=== PATIENT | female | born 1985 | race African-American/Black ===

== ENCOUNTER 2021-02-02 11:07 | Outpatient (REF) | payer BC, SELFPAY ==
[2021-02-02 14:15] LABS: MANUAL DIFF FLAG NO
[2021-02-02 14:17] LABS: Basophils Percent Auto 0.5 % (0-2); Eosinophils Absolute Auto 0.2 X10*3/uL (0.0-0.4); Eosinophils Percent Auto 2.1 % (0-4); Hematocrit 39.6 % (37.0-47.0); Hemoglobin 13.2 g/dl (12.0-16.0); Imm Gran Abs Auto 0.04 X10*3/uL (0.00-0.03); Imm Gran Pct Auto 0.5 % (0.0-0.4); Lymphocytes Absolute Auto 1.9 X10*3/uL (1.2-4.9); Lymphocytes Percent Auto 23.3 % (20-40); Mean Corpuscular HGB Conc 33.3 g/dl (31.0-35.0); Mean Corpuscular Hemoglobin 26.6 pg (27.0-33.0); Mean Corpuscular Volume 79.7 fL (80.0-98.0); Monocytes Absolute Auto 0.6 X10*3/uL (0.1-1.2); Neutrophils Absolute Auto 5.2 x10*3/uL (2.0-8.3); Neutrophils Percent Auto 65.6 % (45-73); Platelet Count 352 X10*3/uL (160-400); Red Blood Count 4.97 X10*6/uL (4.20-5.50); Red Cell Distribution Width 14.6 % (11.0-16.0)
[2021-02-02 14:29] LABS: Alanine Aminotransferase 16 U/L (0-31); Albumin Level 3.6 g/dL (3.5-5.0); Alkaline Phosphatase 51 U/L (39-117); Anion Gap 11 (12-20); Aspartate Amino Transferase 15 U/L (5-31); Bilirubin Total 0.3 mg/dL (0.0-1.0); Blood Urea Nitrogen 6 mg/dL (9-16); Calcium 9.3 mg/dL (8.4-10.2); Carbon Dioxide 25 mmol/L (22-29); Chloride 105 mmol/L (96-108); Estimated Glomerular Filt Rate > 60; Glucose Random 78 mg/dL (60-115); Potassium 4.4 mmol/L (3.3-5.1); Sodium 137 mmol/L (135-145); Total Protein 7.1 g/dL (6.5-8.0)
[2021-02-02 14:57] LABS: TSH reflex Free T4 0.91 uIU/mL (0.32-4.0)
== END 2021-02-02 11:08 | disposition home or self-care (01) ==
LOC: HO.HMGCLDS 11:07
PROVIDERS: PCP Internal Medicine; Visit Provider Internal Medicine
DX: N92.6 Irregular menstruation, unspecified (principal); I10 Essential (primary) hypertension
CPT/HCPCS: 36415; 80053; 84443; 84702; 85025

== ENCOUNTER 2022-09-14 12:25 | Outpatient (AMB) | payer BC, SELFPAY ==
--- NOTE | 2022-09-14 12:29 | AM.OFFWIN_ITS ---
Intake Vital Signs 09/14/22 12:30 Height 5 ft 6 in BP 130/80 Blood Pressure Location Rt brachial Position Sitting Pulse 86 Pulse Source Pulse Oximeter Temp 98.5 F Temp Source Temporal Artery Scan Pulse Oximetry (%) 96 Intake Visit Reasons: EP rash, spreading to face Intake Note: pt is here for c/o rash on chest and face Patient Tobacco Use Status: Never used Tobacco Allergies No Known Allergies [No Known Allergies*] Allergy (Verified 09/14/22 12:36) Medication List - Last Reconciled 09/14/22 by Joao Nguyen PA-C No Known Home Meds HPI EP rash, spreading to face HPI Details Patient is a 37-year-old female here today complaining of a rash that presented on her chest that is spread upper neck onto her face. She was seen last week for this rash after gardening and was thought to be contact dermatitis. Unfortunately RAST as spread and prednisone that she has been taking has not been effective. She continues with itchy rash that has spread over her upper torso, back and lower extremities. [facility] Surgical History No pertinent past surgical history Family History Father No problems noted. Mother HTN (hypertension) Diabetes mellitus Maternal Grandmother Unknown family medical history Maternal Grandfather Unknown family medical history Paternal Grandfather Unknown family medical history Paternal Grandmother Unknown family medical history Brother No problems noted. Brother No problems noted. Brother No problems noted. Sister No problems noted. Sister No problems noted. Sister No problems noted. Sister No problems noted. Sister No problems noted. Sister No problems noted. Son No problems noted. Son No problems noted. 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 Advised that this is a self-limiting syndrome though will supply patient with medications to help with her symptoms. (2) Rash: Code(s): R21 - Rash and other nonspecific skin eruption Medications: New triamcinolone acetonide 0.1% 1 appl topical BID 10 days 80 grams 0RF L42 - Pityriasis rosea hydroxyzine HCl 10 mg PO TID 10 days 30 tabs 0RF F41.9 - Anxiety disorder, unspecified, L42 - Pityriasis rosea Coding Level of Care Code Est Pt Level 3 (01497) Diagnoses Pityriasis rosea L42 Rash R21
[2022-09-14 12:30] VITALS: BP 130/80; PULSE 86; TEMP 36.9; O2SAT 96
== END 2022-09-14 13:02 | disposition home or self-care (01) ==
PROVIDERS: PCP Internal Medicine; Visit Provider Physician Assistant
DX: L42 Pityriasis rosea (principal); R21 Rash and other nonspecific skin eruption
CPT/HCPCS: 99213

== ENCOUNTER 2023-03-19 10:20 | Outpatient (AMB) | payer BC, SELFPAY ==
[2023-03-19 10:25] VITALS: BP 112/90; PULSE 97; O2SAT 99; BMI 40.1
--- NOTE | 2023-03-19 10:25 | MHC.PC.OV ---
Vital Signs 03/19/23 10:25 Height 5 ft 6 in Weight 248 lb 6 oz BMI 40.1 BP 112/90 H Blood Pressure Location Rt brachial Position Sitting Pulse 97 Pulse Source Pulse Oximeter Pulse Oximetry (%) 99 Oxygen Delivery Method Room Air Intake Visit Reasons: Annual PE Allergies No Known Allergies [No Known Allergies*] Allergy (Verified 03/19/23 10:27) Medication List - Last Reconciled 03/19/23 by Brenton Kaur MD No Known Home Meds Tobacco use date assessed: 03/19/23 Dental Screening Dental Screen Date: 03/19/23 Did you have a dental visit in the last 12 months?: Yes Did you have a dental problem in the last 6 months where you did not have access to dental care?: No Was dental information given to patient?: Patient has dentist HPI Annual PE HPI Details Patient is 37-year-old female came in today for physical examination She is due for OBGYN visit, referral placed Due for labs need to be done fasting Patient continued to have mid back pain, 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 We talked about changing the job as it seems like her job activities is making the pain worse I have sent muscle relaxer that she can take at night, and naproxen with food up to 2 times a day as needed BMI is elevated need to lose weight We will book telemedicine visit to go over labs in 2 weeks Patient is to return in 1 year for physical exam [facility] Surgical History No pertinent past surgical history Family History Father No problems noted. Mother HTN (hypertension) Diabetes mellitus Maternal Grandmother Unknown family medical history Maternal Grandfather Unknown family medical history Paternal Grandfather Unknown family medical history Paternal Grandmother Unknown family medical history Brother No problems noted. Brother No problems noted. Brother No problems noted. Sister No problems noted. Sister No problems noted. Sister No problems noted. Sister No problems noted. Sister No problems noted. Sister No problems noted. Son No problems noted. Son No problems noted. Social History Housing: House Alcohol intake: current Alcohol intake frequency: holidays/special occasions only Patient Tobacco Use Status: Never used Tobacco e-Cigarette/Vaping Use: Never Used Current occupational status: employed Cognitive needs: No Hearing needs: No Vision needs: No Questionnaire PHQ-9 Over the last 2 weeks, how often have you been bothered by any of the following problems? 1. Little interest or pleasure in doing things: not at all 2. Feeling down, depressed, or hopeless: several days 3. Trouble falling or staying asleep, or sleeping too much: not at all 4. Feeling tired or having little energy: not at all 5. Poor appetite or overeating: not at all 6. Feeling bad about yourself - or that you are a failure or have let yourself or your family down: not at all 7. Trouble concentrating on things, such as reading the newspaper or watching television: not at all 8. Moving or speaking so slowly that other people could have noticed. Or the opposite - being so fidgety or restless that you have been moving around a lot more than usual: not at all 9. Thoughts that you would be better off or of hurting yourself in some way: not at all Total score: 1 Depression Screening Interpretation: Negative Depression Screening Done: Yes 28063 - PHQ-9 Billing: Yes Source: Developed by Drs. Mick Luu, Colette Alas, Gera Pierce and colleagues, with an educational nazia from [employer]. Thrive Questionnaire Date Thrive assessed: 03/19/23 I am a: Patient What is your living situation today?: I have a steady place to live Within the past 12 months, did the food you bought not last and you didn't have the money to get more?: Sometimes True Within the past 12 months, did you worry whether your food would run out before you got money to buy more?: Sometimes True Do you have trouble paying for medicines?: No Do you have trouble getting transportation to medical appointments?: No Do you have trouble paying your heating and electricity bill?: No Do you have trouble taking care of your child, family member or friend?: No Do you have trouble with day-to-day activities such as bathing, preparing meals, shopping, managing finances, etc.?: No Are you currently unemployed and looking for a job?: No Are you interested in more education?: No Please select the resources that you would like help with: None Currently or been in a relationship where the following occur: no concerns reported AUDIT C Alcohol Use Questionnaire (AUDIT-C) 1. How often do you have a drink containing alcohol?: Never 3. How often do you have six or more drinks on one occasion?: Never Total Score: 0 Score Reviewed/Action Taken: Yes BLANCA-7 AMB Questionnaire BLANCA-7 Date BLANCA - 7 assessed: 03/19/23 Feeling nervous, anxious, or on edge: 1 = Several days Not being able to stop or control worryin = Several days Worrying too much about different things: 1 = Several days Trouble relaxin = Several days Being so restless that it is hard to sit still: 1 = Several days Becoming easily annoyed or irritable: 1 = Several days Feeling afraid as if something awful might happen: 1 = Several days Total BLANCA-7 score (0-4 normal; 5-9 mild; 10-14 moderate; 15-21 severe): 7 Source: Developed by Drs. Mick Luu, Colette Alas, Gera Pierce and colleagues, with an educational nazia from [employer]. BLANCA-7 Assessment Billing BLANCA-7 Assessment Tool: BLANCA-7 Assessment 73820 Review of Systems Const Denies chills, Denies fever(s) and Denies headache(s) Eyes Denies blurry vision ENT Denies headache(s), Denies nasal discharge, Denies nasal obstruction, Denies odynophagia and Denies sinus pain Card Denies chest pain at rest and Denies chest pain with activity Resp Denies cough and Denies hemoptysis GI Denies diarrhea, Denies odynophagia, Denies vomiting and Denies hematemesis Reports as per HPI Musc Denies abnormal gait Skin/Breast Reports as per HPI Neuro Denies Neuro-related abnormal movements, Denies Abnormal speech present, Denies abnormal gait, Denies headache(s) and Denies Sensory deficit (Neuro) Psych Denies mood swings and Denies paranoia Endo Reports as per HPI Richard/Lymph Reports as per HPI Aller/Immun Reports as per HPI Physical exam (Primary Care) Vital Signs: Last Vital Signs Pulse 97 03/19/23 10:25 BP 112/90 H 03/19/23 10:25 Pulse Ox 99 03/19/23 10:25 Oxygen Delivery Method Room Air 03/19/23 10:25 BMI result Body Mass Index 40.1 Tobacco/Smoking Status: Tobacco use Status Tobacco use date assessed 03/19/23 03/19/23 10:29 Patient Tobacco Use Status Never used Tobacco 03/19/23 10:29 e-Cigarette/Vaping Use Never Used 03/19/23 10:29 PHQ-9: PHQ-9 Score PHQ-9: Total score 1 03/19/23 10:49 Depression Screening Interpretation: Negative Thrive Assessment: Date of Thrive Assessment Date Thrive assessed 03/19/23 03/19/23 10:49 Currently or been in a relationship where the following occur: no concerns reported Const General: cooperative, comfortable and no acute distress Orientation/consciousness: patient oriented x3 HENMT Head: Yes normocephalic and Yes atraumatic Eyes General: appearance normal, both eyes and all related structures Pupils: Equal, round and reactive pupils present EOM: EOMs intact bilaterally Neck Neck: Yes supple and No lymphadenopathy Thyroid: Thyroid normal Lymphatic: no lymphadenopathy noted Chest Breast/axilla palpation: normal palpation of the breasts Resp Effort & Inspection: normal respiratory effort and able to speak in complete sentences Auscultation: clear to auscultation bilaterally Cardio Heart sounds: S1 normal heart sound present and S2 normal heart sound present GI Palpation (GI): Soft to palpation and nontender Auscultation: normal bowel sounds General: Yes no CVA tenderness Back/Spine/Pelvis Back: no CVA tenderness Back/spine/pelvis image: 1. Site of pain Skin General skin exam: elasticity normal and turgor normal Neuro General: patient oriented x3 and gait normal Cranial nerves: Yes Equal, round and reactive pupils present Speech: No Abnormal speech present Sensory Exam: No Sensory deficit (Neuro) Coordination: tandem gait normal and Romberg test negative Extrem General: Yes normal exam except as noted and No edema Assessment and Plan Assessment & Plan (1) Encounter for general adult medical examination with abnormal findings: Code(s): Z00.01 - Encounter for general adult medical examination with abnormal findings (2) Morbid obesity due to excess calories: Code(s): E66.01 - Morbid (severe) obesity due to excess calories (3) Upper back pain, chronic: Code(s): M54.9 - Dorsalgia, unspecified; G89.29 - Other chronic pain Plan Patient is 37-year-old female came in today for physical examination She is due for OBGYN visit, referral placed Due for labs need to be done fasting Patient continued to have mid back pain, 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 We talked about changing the job as it seems like her job activities is making the pain worse I have sent muscle relaxer that she can take at night, and naproxen with food up to 2 times a day as needed BMI is elevated need to lose weight We will book telemedicine visit to go over labs in 2 weeks Patient is to return in 1 year for physical exam Orders: Orders Comprehensive [place]. Panel Fast Today E66.01 - Morbid (severe) obesity due to excess calories, Z00.01 - Encounter for general adult medical examination with abnormal findings Complete Blood Count Auto Diff Today E66.01 - Morbid (severe) obesity due to excess calories, Z00.01 - Encounter for general adult medical examination with abnormal findings Lipid Panel Today E66.01 - Morbid (severe) obesity due to excess calories, Z00.01 - Encounter for general adult medical examination with abnormal findings TSH reflex Free T4 Today E66.01 - Morbid (severe) obesity due to excess calories, Z00.01 - Encounter for general adult medical examination with abnormal findings Referrals [employer] [facility] TECHNICIAN Referral Z01.419 - Encounter for gynecological examination (general) (routine) without abnormal findings Medications: New cyclobenzaprine 5 mg PO BEDTIME 30 days 30 tabs 0RF M54.9 - Dorsalgia, unspecified naproxen Take it with food 500 mg PO BID 30 days PRN 60 tabs 0RF pain Coding Level of Care Code Est Pt Prev Care 18-39y(18491) Diagnoses Encounter for general adult medical examination with abnormal findings Z00.01 Morbid obesity due to excess calories E66.01 Upper back pain, chronic M54.9; G89.29 Additional Codes BLANCA-7 Assessment Billing - BLANCA-7 Assessment Tool: BLANCA-7 Assessment 33439 ([id number])
== END 2023-03-19 10:50 | disposition home or self-care (01) ==
PROVIDERS: PCP Internal Medicine; Visit Provider Internal Medicine
DX: Z00.00 Encounter for general adult medical examination without abnormal findings (principal); Z68.41 Body mass index [BMI] 40.0-44.9, adult; E66.01 Morbid (severe) obesity due to excess calories; M54.9 Dorsalgia, unspecified; G89.29 Other chronic pain
CPT/HCPCS: 99395

== ENCOUNTER 2023-03-22 10:08 | Outpatient (REF) | payer BC, SELFPAY ==
[2023-03-22 11:29] LABS: MANUAL DIFF FLAG NO
[2023-03-22 11:46] LABS: Basophils Percent Auto 0.4 % (0-2); Eosinophils Absolute Auto 0.2 X10*3/uL (0.0-0.4); Hematocrit 39.6 % (37.0-47.0); Imm Gran Abs Auto 0.01 X10*3/uL (0.00-0.03); Imm Gran Pct Auto 0.2 % (0.0-0.4); Lymphocytes Absolute Auto 2.1 X10*3/uL (1.2-4.9); Lymphocytes Percent Auto 47.1 % (20-40); Mean Corpuscular HGB Conc 32.8 g/dl (31.0-35.0); Mean Corpuscular Hemoglobin 25.9 pg (27.0-33.0); Mean Platelet Volume 11.9 fL (9.4-12.3); Monocytes Absolute Auto 0.3 X10*3/uL (0.1-1.2); Neutrophils Absolute Auto 1.8 x10*3/uL (2.0-8.3); Neutrophils Percent Auto 41.3 % (45-73); Platelet Count 273 X10*3/uL (160-400); Red Blood Count 5.01 X10*6/uL (4.20-5.50); Red Cell Distribution Width 14.1 % (11.0-16.0); White Blood Count 4.5 X10*3/uL (4.8-10.8)
[2023-03-22 11:54] LABS: Alanine Aminotransferase 10 U/L (0-31); Albumin Level 3.6 g/dL (3.5-5.0); Alkaline Phosphatase 66 U/L (39-117); Anion Gap 9 (12-20); Aspartate Amino Transferase 15 U/L (5-31); Bilirubin Total 0.5 mg/dL (0.0-1.0); Blood Urea Nitrogen 7 mg/dL (9-16); Calcium 8.8 mg/dL (8.4-10.2); Carbon Dioxide 27 mmol/L (22-29); Chloride 105 mmol/L (96-108); Cholesterol 142 mg/dL (<200); Estimated Glomerular Filt Rate > 60; Glucose Fasting 82 mg/dL (60-99); HDL Cholesterol 41 mg/dL (>40); LDL Cholesterol Calculated 93 mg/dL (<100); Potassium 3.9 mmol/L (3.3-5.1); Sodium 137 mmol/L (135-145); Total Protein 7.2 g/dL (6.5-8.0); Triglycerides 43 mg/dL (<150)
[2023-03-22 12:11] LABS: TSH reflex Free T4 2.36 uIU/mL (0.32-4.0)
== END 2023-03-22 10:09 | disposition home or self-care (01) ==
LOC: HO.HMGCLDS 10:08
PROVIDERS: PCP Internal Medicine; Visit Provider Internal Medicine
DX: Z00.01 Encounter for general adult medical examination with abnormal findings (principal); E66.01 Morbid (severe) obesity due to excess calories
CPT/HCPCS: 36415; 80053; 80061; 84443; 85025

== ENCOUNTER 2023-04-15 10:48 | Outpatient (AMB) | payer BC, SELFPAY ==
--- NOTE | 2023-04-15 10:53 | MHC.PC.OV ---
Vital Signs 04/15/23 10:54 Height 5 ft 6 in Weight 248 lb BMI 40.0 BP 142/80 H Blood Pressure Location Rt brachial Position Sitting Pulse 89 Pulse Source Pulse Oximeter Pulse Oximetry (%) 100 Oxygen Delivery Method Room Air Intake Visit Reasons: Discuss Results~ unable to do TV Allergies No Known Allergies [No Known Allergies*] Allergy (Verified 04/15/23 10:54) Medication List - Last Reconciled 04/15/23 by Brenton Kaur MD No Known Home Meds Tobacco use date assessed: 04/15/23 Dental Screening Dental Screen Date: 04/15/23 Did you have a dental visit in the last 12 months?: Yes Did you have a dental problem in the last 6 months where you did not have access to dental care?: No Was dental information given to patient?: Patient has dentist HPI Discuss Results~ unable to do TV HPI Details Patient is 37-year-old female came today to go over labs her white count level came back slightly low, it was fine last visit We will repeat it again in 3 months Patient is having lot of stress at home due to family med is She is suffering from anxiety and mood disorder Patient does not want to take medication daily but she agreed to take it as needed, I have sent buspirone 5 mg to be taken once a day as needed She is also requesting a script for multivitamin, I see that no multivitamin is covered under her insurance I have sent vitamin instead as that is covered. However patient is not . Her BMI is elevated, she is trying to lose weight but feels as if she has not motivated enough Blood pressure is also elevated today, but it was fine last time [facility] Surgical History No pertinent past surgical history Family History Father No problems noted. Mother HTN (hypertension) Diabetes mellitus Maternal Grandmother Unknown family medical history Maternal Grandfather Unknown family medical history Paternal Grandfather Unknown family medical history Paternal Grandmother Unknown family medical history Brother No problems noted. Brother No problems noted. Brother No problems noted. Sister No problems noted. Sister No problems noted. Sister No problems noted. Sister No problems noted. Sister No problems noted. Sister No problems noted. Son No problems noted. Son No problems noted. Social History Housing: House Alcohol intake: current Alcohol intake frequency: holidays/special occasions only Patient Tobacco Use Status: Never used Tobacco e-Cigarette/Vaping Use: Never Used Current occupational status: employed Cognitive needs: No Hearing needs: No Vision needs: No Questionnaire Thrive Questionnaire Date Thrive assessed: 03/19/23 AUDIT C Alcohol Use Questionnaire (AUDIT-C) 1. How often do you have a drink containing alcohol?: Never 3. How often do you have six or more drinks on one occasion?: Never Total Score: 0 BLANCA-7 AMB Questionnaire BLANCA-7 Date BLANCA - 7 assessed: 03/19/23 Source: Developed by Drs. Mick Luu, Colette Alas, Gera Pierce and colleagues, with an educational nazia from [employer]. Review of Systems Const Denies chills and Denies fever(s) ENT Denies epistaxis and Denies nasal discharge Card Denies chest pain Resp Denies chest congestion, Denies cough and Denies hemoptysis GI Denies diarrhea and Denies nausea Skin/Breast Denies rash Neuro Reports no additional complaints Psych Reports no additional complaints Endo Reports no additional complaints Physical exam (Primary Care) Vital Signs: Last Vital Signs Pulse 89 04/15/23 10:54 BP 142/80 H 04/15/23 10:54 Pulse Ox 100 04/15/23 10:54 Oxygen Delivery Method Room Air 04/15/23 10:54 BMI result Body Mass Index 40.0 Tobacco/Smoking Status: Tobacco use Status Tobacco use date assessed 04/15/23 04/15/23 10:56 Patient Tobacco Use Status Never used Tobacco 04/15/23 10:56 e-Cigarette/Vaping Use Never Used 04/15/23 10:56 Thrive Assessment: Date of Thrive Assessment Date Thrive assessed 03/19/23 04/15/23 10:56 Const General: cooperative, comfortable and no acute distress Orientation/consciousness: patient oriented x3 HENMT Head: Yes normocephalic Eyes General: appearance normal, both eyes and all related structures Neck Neck: Yes supple Resp Effort & Inspection: normal respiratory effort, no cough and no stridor Cardio Rhythm: regular rhythm Heart sounds: S1 normal heart sound present and S2 normal heart sound present Skin General skin exam: turgor normal Neuro General: patient oriented x3, tone normal and moves all extremities Extrem Right lower extremity: no edema Left lower extremity: no edema Assessment and Plan Assessment & Plan (1) Neutropenia: Code(s): D70.9 - Neutropenia, unspecified Qualifiers: Neutropenia type: unspecified Qualified Code(s): D70.9 - Neutropenia, unspecified (2) Stress: Code(s): F43.9 - Reaction to severe stress, unspecified (3) Morbid obesity due to excess calories: Code(s): E66.01 - Morbid (severe) obesity due to excess calories (4) Anxiety, generalized: Code(s): F41.1 - Generalized anxiety disorder (5) Labile mood: Code(s): R45.86 - Emotional lability Plan Patient is 37-year-old female came today to go over labs her white count level came back slightly low, it was fine last visit We will repeat it again in 3 months Patient is having lot of stress at home due to family med is She is suffering from anxiety and mood disorder Patient does not want to take medication daily but she agreed to take it as needed, I have sent buspirone 5 mg to be taken once a day as needed She is also requesting a script for multivitamin, I see that no multivitamin is covered under her insurance I have sent vitamin instead as that is covered. However patient is not . Her BMI is elevated, she is trying to lose weight but feels as if she has not motivated enough Blood pressure is also elevated today, but it was fine last time Orders: Orders Complete Blood Count Auto Diff 3 Months D70.9 - Neutropenia, unspecified, E66.01 - Morbid (severe) obesity due to excess calories, F41.1 - Generalized anxiety disorder, F43.9 - Reaction to severe stress, unspecified, R45.86 - Emotional lability Medications: New Prenate Chewable 1 mg (multivitamin no.36-folate no.6) 1 tab PO .qd 90 tabs 0RF 90 days NS buspirone 5 mg PO .q am PRN 30 tabs 0RF anxiety 30 days Coding Level of Care Code Est Pt Level 3 (10785) Diagnoses Neutropenia, unspecified type D70.9 Neutropenia type: unspecified Stress F43.9 Morbid obesity due to excess calories E66.01 Anxiety, generalized F41.1 Labile mood R45.86
[2023-04-15 10:54] VITALS: BP 142/80; PULSE 89; O2SAT 100; BMI 40.0
== END 2023-04-15 11:42 | disposition home or self-care (01) ==
PROVIDERS: PCP Internal Medicine; Visit Provider Internal Medicine
DX: D70.9 Neutropenia, unspecified (principal); E66.01 Morbid (severe) obesity due to excess calories; Z68.41 Body mass index [BMI] 40.0-44.9, adult; F43.9 Reaction to severe stress, unspecified; F41.1 Generalized anxiety disorder; R45.86 Emotional lability
CPT/HCPCS: 99213

== ENCOUNTER 2023-06-13 13:43 | Outpatient (AMB) | payer BC, SELFPAY ==
[2023-06-13 13:48] VITALS: BP 130/80; BMI 39.7
--- NOTE | 2023-06-13 13:48 | MHC.OFFVIS ---
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 For that she went to [facility] for care. She is still nursing that child was almost 2 years old she has nursed all of her children. She is healthy and not on any medications at all she does not have sex very often with her she has not that interested and when she does she uses protection with condoms. She has no particular worries about infection but she may be interested in testing in the future but just accepts the testing done with the vaginal exam today . Her period Was last week. [facility] Surgical History No pertinent past surgical history Family History Father No problems noted. Mother HTN (hypertension) Diabetes mellitus Maternal Grandmother Unknown family medical history Maternal Grandfather Unknown family medical history Paternal Grandfather Unknown family medical history Paternal Grandmother Unknown family medical history Brother No problems noted. Brother No problems noted. Brother No problems noted. Sister No problems noted. Sister No problems noted. Sister No problems noted. Sister No problems noted. Sister No problems noted. Sister No problems noted. Son No problems noted. Son No problems noted. Social History Housing: House Alcohol intake: current Alcohol intake frequency: holidays/special occasions only Patient Tobacco Use Status: Never used Tobacco e-Cigarette/Vaping Use: Never Used Current occupational status: employed Cognitive needs: No Hearing needs: No Vision needs: No Female Reproductive History Menstrual Age of Menarche: 13 Duration of menses: 3-5 days Date of last menstrual period: 06/04/23 control method: none Total pregnancies: 3 Full term: 3 Number of Living Children: 3 Date of last pap smear: 01/02/18 (negative) Physical Exam Vital Signs: Last Vital Signs BP 130/80 06/13/23 13:48 BMI result Body Mass Index 39.7 Const General: healthy appearing, comfortable, no acute distress, well developed and alert Nutritional Appearance: average body habitus Orientation/consciousness: patient oriented x3 Limitations: no limitations HEENT Head: Yes normocephalic Neck Neck: Yes normal visual inspection Chest Chest palpation & inspection: normal inspection of the chest Breast/axilla inspection: normal inspection of the breasts and normal inspection of the axillae Breast/axilla palpation: normal palpation of the breasts and normal palpation of the axillae Resp Effort & Inspection: normal respiratory effort GI Inspection: Yes normal to inspection, No Abdominal wall edema and No distended Palpation (GI): Soft to palpation and nontender Other: Normal external exam. Vagina pink and moist cervix multiparous pink smooth healthy appearing no abnormal mucus or discharge uterus small anteverted mobile nontender adnexa nontender good tone with Kegel. General: Yes bladder normal to palpation External Female Exam: normal external appearance and normal appearance of the urethra Speculum Exam - Vagina: normal appearance of the vagina, normal palpation and normal vaginal discharge Speculum Exam - Cervix: normal appearance of the cervix, normal palpation and nontender Bimanual exam- vagina & uterus: normal bimanual exam, normal palpation, uterine size normal, bladder normal to palpation, consistency normal, normal palpation, uterine mobility normal, uterine shape normal, No Cervical tenderness present, non-tender and no cervical motion tenderness Bimanual Exam- Adnexa, other: normal adnexae, no masses, normal and No adnexal tenderness Neuro General: patient oriented x3 Assessment & Plan Assessment & Plan (1) Well woman exam with routine gynecological exam: Code(s): Z01.419 - Encounter for gynecological examination (general) (routine) without abnormal findings (2) Cervical cancer screening: Code(s): Z12.4 - Encounter for screening for malignant neoplasm of cervix (3) Encounter for screening examination for sexually transmitted disease: Comment: Declined any blood work for HIV etc. today may consider in the future... Code(s): Z11.3 - Encounter for screening for infections with a predominantly sexual mode of transmission (4) Uses control: Comment: Uses condoms when she does have sex with her . Code(s): Z78.9 - Other specified health status Plan -----Discussed in this visit the following: healthy balanced diet, regular and consistent exercise, getting recommended health screens, doing the best she can for her particular health concerns, kegel exercises, pap smear screening and followup recommendations, mammography screening and SBE, normal changes in cycles in her life stage--- . Reviewed her labors with her last 2 children and her and reviewed use of condoms reviewed normal and common findings including bacteria and Ericka as very common and not problematic unless they closer difficulty if they are found. Discussed that it is very common to be less interested in sex as we get older. She protects herself with condoms just to be on the safe side. I did offer other methods of control but she has not interested. RTC 1 year congratulated on her extended Explained the Pap results should come in a letter but that other results would be available on the portal. We would call for anything positive. Coding Level of Care Code New Pt Prev Care 18-39yr([id number] Diagnoses Well woman exam with routine gynecological exam Z01.419 Cervical cancer screening Z12.4 Encounter for screening examination for sexually transmitted disease Z11.3 Uses control Z78.9
== END 2023-06-13 14:21 | disposition home or self-care (01) ==
LOC: HO.HWSM 13:44
PROVIDERS: PCP Internal Medicine; Visit Provider Advanced Practice Midwife
DX: Z01.419 Encounter for gynecological examination (general) (routine) without abnormal findings (principal); Z12.4 Encounter for screening for malignant neoplasm of cervix; Z11.3 Encounter for screening for infections with a predominantly sexual mode of transmission; Z78.9 Other specified health status
CPT/HCPCS: 99385

== ENCOUNTER 2023-06-13 13:43 | Outpatient (REF) | payer BC, SELFPAY ==
[2023-06-14 02:37] LABS: CT PCR NOT DETECTED (Not Detect.); NG PCR NOT DETECTED (Not Detect.)
[2023-06-14 13:22] LABS: BV Int Neg Control Negative (Negative); BV Int Pos Control Positive (Positive)
[2023-06-19 23:29] LABS: HPV mRNA E6/E7 rflx Not Detected (Not Detected)
== END 2023-06-13 13:44 | disposition home or self-care (01) ==
LOC: HO.LNP 13:43
PROVIDERS: PCP Internal Medicine; Visit Provider Advanced Practice Midwife
DX: Z01.419 Encounter for gynecological examination (general) (routine) without abnormal findings (principal); Z11.51 Encounter for screening for human papillomavirus (HPV); Z20.2 Contact with and (suspected) exposure to infections with a predominantly sexual mode of transmission
CPT/HCPCS: 0353U; 87480; 87510; 87624; 87660; 88142

== ENCOUNTER 2024-03-23 11:29 | Outpatient (AMB) | payer BC, SELFPAY ==
[2024-03-23 11:32] VITALS: BP 128/74; PULSE 86; O2SAT 98; BMI 39.4
--- NOTE | 2024-03-23 11:32 | A.OFFPC_ITS ---
Vital Signs 03/23/24 11:32 Height 5 ft 6 in Weight 244 lb BMI 39.4 BP 128/74 Blood Pressure Location Rt brachial Position Sitting Pulse 86 Pulse Source Pulse Oximeter Pulse Oximetry (%) 98 Oxygen Delivery Method Room Air Intake Visit Reasons: Annual PE Allergies No Known Allergies [No Known Allergies*] Allergy (Verified 03/23/24 11:32) Medication List - Last Reconciled 03/23/24 by Brenton Kaur MD No Known Home Meds Tobacco use date assessed: 03/23/24 Dental Screening Dental Screen Date: 03/23/24 Did you have a dental visit in the last 12 months?: Yes Did you have a dental problem in the last 6 months where you did not have access to dental care?: No Was dental information given to patient?: Patient has dentist HPI Annual PE HPI Details PE apt - The patient is a 38-year-old female st Infratel with obesity with BMI of 39.4 - Engaging in intermittent fasting and d ietary changes to aid weight loss. - Suffers from back strain related to he r occupational duties involving lifting. - Pain noted to intensify with work acti vities but improves during rest. - Discussed preventive measures includin g proper lifting techniques. Health Maintenance - OBGYN visits are up to date, including Pap smear. - Encouragement for increased physical e xercise and healthy dietary practices for weight management. - Consideration of consulting with a tician for additional dietary management support. Medications - Utilizes protein supplements to aid in prolonged satiety. - Engages in intermittent fasting as par t of weight management strategy. Employment - Engaged in a role involving lifting, w hich contributes to reported back strain. Patient Instructions - Consider using eye drops or cold water to alleviate burning eyes. - Continue considering dietary adjustmen ts and exercise, with potential fiber glass worker consultation for further personalization. - Practice safe lifting techniques to pr event exacerbating back strain; consider use of a support belt. - Utilize broth or soup before meals to reduce overall calorie intake. Lab order placed to be done fasting [facility] Surgical History No pertinent past surgical history Family History Father No problems noted. Mother HTN (hypertension) Diabetes mellitus Maternal Grandmother Unknown family medical history Maternal Grandfather Unknown family medical history Paternal Grandfather Unknown family medical history Paternal Grandmother Unknown family medical history Brother No problems noted. Brother No problems noted. Brother No problems noted. Sister No problems noted. Sister No problems noted. Sister No problems noted. Sister No problems noted. Sister No problems noted. Sister No problems noted. Son No problems noted. Son No problems noted. Social History Housing: House Alcohol intake: current Alcohol intake frequency: holidays/special occasions only Patient Tobacco Use Status: Never used Tobacco e-Cigarette/Vaping Use: Never Used service: No Current occupational status: employed Cognitive needs: No Hearing needs: No Vision needs: No Female Reproductive History Menstrual Age of Menarche: 13 Questionnaire PHQ-9 Over the last 2 weeks, how often have you been bothered by any of the following problems? 1. Little interest or pleasure in doing things: not at all 2. Feeling down, depressed, or hopeless: several days 3. Trouble falling or staying asleep, or sleeping too much: not at all 4. Feeling tired or having little energy: not at all 5. Poor appetite or overeating: not at all 6. Feeling bad about yourself - or that you are a failure or have let yourself or your family down: not at all 7. Trouble concentrating on things, such as reading the newspaper or watching television: not at all 8. Moving or speaking so slowly that other people could have noticed. Or the opposite - being so fidgety or restless that you have been moving around a lot more than usual: not at all 9. Thoughts that you would be better off or of hurting yourself in some way: not at all Total score: 1 Depression Screening Interpretation: Negative Depression Screening Done: Yes 33431 - PHQ-9 Billing: Yes Source: Developed by Drs. Mick Luu, Colette Alas, Gera Pierce and colleagues, with an educational nazia from [employer] ([employer] Thrive Questionnaire Date Thrive assessed: 03/23/24 I am a: Patient What is your living situation today?: I have a steady place to live Within the past 12 months, did the food you bought not last and you didn't have the money to get more?: I choose not to answer this question Within the past 12 months, did you worry whether your food would run out before you got money to buy more?: I choose not to answer this question Do you have trouble paying for medicines?: I choose not to answer this question Do you have trouble getting transportation to medical appointments?: I choose not to answer this question Do you have trouble paying your heating and electricity bill?: I choose not to answer this question Do you have trouble taking care of your child, family member or friend?: I choose not to answer this question Do you have trouble with day-to-day activities such as bathing, preparing meals, shopping, managing finances, etc.?: I choose not to answer this question Are you currently unemployed and looking for a job?: I choose not to answer this question Are you interested in more education?: I choose not to answer this question Please select the resources that you would like help with: Education Currently or been in a relationship where the following occur: No concerns reported THRIVE Score: 0 AUDIT C Alcohol Use Questionnaire (AUDIT-C) 1. How often do you have a drink containing alcohol?: Monthly or less 2. How many drinks containing alcohol do you have on a typical day when you are drinking?: 1 or 2 3. How often do you have six or more drinks on one occasion?: Never Total Score: 1 Score Reviewed/Action Taken: Yes BLANCA-7 AMB Questionnaire BLANCA-7 Date BLANCA - 7 assessed: 03/23/24 Feeling nervous, anxious, or on edge: 1 = Several days Not being able to stop or control worryin = Not at all Worrying too much about different things: 0 = Not at all Trouble relaxin = Not at all Being so restless that it is hard to sit still: 0 = Not at all Becoming easily annoyed or irritable: 0 = Not at all Feeling afraid as if something awful might happen: 0 = Not at all Total BLANCA-7 score (0-4 normal; 5-9 mild; 10-14 moderate; 15-21 severe): 1 Source: Developed by Drs. Mick Luu, Colette Alas, Gera Pierce and colleagues, with an educational nazia from [employer] BLANCA-7 Assessment Billing BLANCA-7 Assessment Tool: BLANCA-7 Assessment 57393 Review of Systems Const Denies chills, Denies fever(s) and Denies headache(s) Eyes Denies blurry vision ENT Denies headache(s), Denies nasal discharge, Denies nasal obstruction, Denies odynophagia and Denies sinus pain Card Denies chest pain at rest and Denies chest pain with activity Resp Denies cough and Denies hemoptysis GI Denies diarrhea, Denies odynophagia, Denies vomiting and Denies hematemesis Reports as per HPI Musc Denies abnormal gait Skin/Breast Reports as per HPI Neuro Denies Neuro-related abnormal movements, Denies Abnormal speech present, Denies abnormal gait, Denies headache(s) and Denies Sensory deficit (Neuro) Psych Denies mood swings and Denies paranoia Endo Reports as per HPI Richard/Lymph Reports as per HPI Aller/Immun Reports as per HPI Physical exam (Primary Care) Vital Signs: Last Vital Signs Pulse 86 03/23/24 11:32 BP 128/74 03/23/24 11:32 Pulse Ox 98 03/23/24 11:32 Oxygen Delivery Method Room Air 03/23/24 11:32 BMI result Body Mass Index 39.4 Tobacco/Smoking Status: Tobacco use Status Tobacco use date assessed 03/23/24 03/23/24 11:34 Patient Tobacco Use Status Never used Tobacco 03/23/24 11:34 e-Cigarette/Vaping Use Never Used 03/23/24 11:34 PHQ-9: PHQ-9 Score PHQ-9: Total score 1 03/23/24 11:57 Depression Screening Interpretation: Negative Thrive Assessment: Date of Thrive Assessment Date Thrive assessed 03/23/24 03/23/24 11:34 Currently or been in a relationship where the following occur: No concerns reported Const General: cooperative, comfortable and no acute distress Orientation/consciousness: patient oriented x3 HENMT Head: Yes normocephalic and Yes atraumatic Eyes General: appearance normal, both eyes and all related structures Pupils: Equal, round and reactive pupils present EOM: EOMs intact bilaterally Neck Neck: Yes supple and No lymphadenopathy Thyroid: Thyroid normal Lymphatic: no lymphadenopathy noted Chest Breast/axilla inspection: normal inspection of the breasts Breast/axilla palpation: normal palpation of the breasts Resp Effort & Inspection: normal respiratory effort and able to speak in complete sentences Auscultation: clear to auscultation bilaterally Cardio Heart sounds: S1 normal heart sound present and S2 normal heart sound present GI Palpation (GI): Soft to palpation and nontender Auscultation: normal bowel sounds General: Yes no CVA tenderness Back/Spine/Pelvis Back: no CVA tenderness Skin General skin exam: elasticity normal and turgor normal Neuro General: patient oriented x3 and gait normal Cranial nerves: Yes Equal, round and reactive pupils present Speech: No Abnormal speech present Sensory Exam: No Sensory deficit (Neuro) Coordination: tandem gait normal and Romberg test negative Extrem General: Yes normal exam except as noted and No edema Coding Level of Care Code Est Pt Level 3 (90869) Est Pt Prev Care 18-39y(79925) Diagnoses Encounter for general adult medical examination with abnormal findings Z00.01 Morbid obesity due to excess calories E66.01 Anxiety, generalized F41.1 Viral upper respiratory infection J06.9 Additional Codes BLANCA-7 Assessment Billing - BLANCA-7 Assessment Tool: BLANCA-7 Assessment 17674 ([id number]) PHQ-9 - 18400 - PHQ-9 Billing: Yes ([id number]) Assessment & Plan Assessment & Plan (1) Encounter for general adult medical examination with abnormal findings: Code(s): Z00.01 - Encounter for general adult medical examination with abnormal findings Category: Medical (2) Morbid obesity due to excess calories: Code(s): E66.01 - Morbid (severe) obesity due to excess calories Category: Medical (3) Anxiety, generalized: Code(s): F41.1 - Generalized anxiety disorder Category: Medical (4) Viral upper respiratory infection: Code(s): J06.9 - Acute upper respiratory infection, unspecified Category: Medical Plan PE apt Currently recovering from viral upper respiratory tract illness Having burning sensation in eyes - The patient is a 38-year-old female struggling with obesity with BMI of 39.4 - Engaging in intermittent fasting and dietary changes to aid weight loss. - Suffers from back strain related to her occupational duties involving lifting. - Pain noted to intensify with work activities but improves during rest. - Discussed preventive measures including proper lifting techniques. Health Maintenance - OBGYN visits are up to date, including Pap smear. - Encouragement for increased physical exercise and healthy dietary practices for weight management. - Consideration of consulting with a fiber glass worker for additional dietary management support. Medications - Utilizes protein supplements to aid in prolonged satiety. - Engages in intermittent fasting as part of weight management strategy. Employment - Engaged in a role involving lifting, which contributes to reported back strain. Patient Instructions - Consider using eye drops or cold water to alleviate burning eyes. - Continue considering dietary adjustments and exercise, with potential fiber glass worker consultation for further personalization. - Practice safe lifting techniques to prevent exacerbating back strain; consider use of a support belt. - Utilize broth or soup before meals to reduce overall calorie intake. Lab order placed to be done fasting Orders: Orders Lipid Panel Today E66.01 - Morbid (severe) obesity due to excess calories, F41.1 - Generalized anxiety disorder, Z00.01 - Encounter for general adult medical examination with abnormal findings TSH reflex Free T4 Today E66.01 - Morbid (severe) obesity due to excess calories, F41.1 - Generalized anxiety disorder, Z00.01 - Encounter for general adult medical examination with abnormal findings Complete Blood Count Auto Diff Today E66.01 - Morbid (severe) obesity due to excess calories, F41.1 - Generalized anxiety disorder, Z00.01 - Encounter for general adult medical examination with abnormal findings Comprehensive [place]. Panel Fast Today E66.01 - Morbid (severe) obesity due to excess calories, F41.1 - Generalized anxiety disorder, Z00.01 - Encounter for general adult medical examination with abnormal findings Vitamin D 25-OH (D2 and D3) Today E66.01 - Morbid (severe) obesity due to excess calories, F41.1 - Generalized anxiety disorder, Z00.01 - Encounter for general adult medical examination with abnormal findings
== END 2024-03-23 12:27 | disposition home or self-care (01) ==
PROVIDERS: PCP Internal Medicine; Visit Provider Internal Medicine
DX: Z00.01 Encounter for general adult medical examination with abnormal findings (principal); H57.89 Other specified disorders of eye and adnexa; E66.01 Morbid (severe) obesity due to excess calories; F41.1 Generalized anxiety disorder; J06.9 Acute upper respiratory infection, unspecified; Z68.39 Body mass index [BMI] 39.0-39.9, adult

== ENCOUNTER → 2024-03-23 11:29 | Outpatient (BNVA) | payer BC, SELFPAY | PROVIDERS: PCP Internal Medicine; Visit Provider Internal Medicine | DX: Z00.01 Encounter for general adult medical examination with abnormal findings (principal); J06.9 Acute upper respiratory infection, unspecified; E66.01 Morbid (severe) obesity due to excess calories; Z68.39 Body mass index [BMI] 39.0-39.9, adult; F41.1 Generalized anxiety disorder | CPT/HCPCS: 96127 ==

== ENCOUNTER 2024-03-24 22:39 | Emergency (ER) | payer BC, SELFPAY ==
[2024-03-24 22:45] VITALS: BP 144/85; PULSE 88; RESP 18; TEMP 36.5; O2SAT 100; BMI 39.4
== END 2024-03-25 04:25 | disposition left against medical advice (07) ==
PROVIDERS: Emergency Provider Emergency Medicine; PCP Internal Medicine
DX: R03.0 Elevated blood-pressure reading, without diagnosis of hypertension (principal); Z53.21 Procedure and treatment not carried out due to patient leaving prior to being seen by health care provider
CPT/HCPCS: 99281

== ENCOUNTER 2024-03-25 08:57 | Outpatient (AMB) | payer BC, SELFPAY ==
--- NOTE | 2024-03-25 10:33 | AM.OFFWIN_ITS ---
Intake Vital Signs 03/25/24 10:34 Weight 244 lb BP 130/90 H Blood Pressure Location Lt brachial Position Sitting Pulse 59 Pulse Source Pulse Oximeter Pulse Oximetry (%) 97 Oxygen Delivery Method Room Air Intake Visit Reasons: EP-?lt wrist issues Intake Note: Patient here for left wrist issues, states she was able to visually see her pulse that she noticed yesterday. Patient Tobacco Use Status: Never used Tobacco Allergies No Known Allergies [No Known Allergies*] Allergy (Verified 03/25/24 10:35) Do you need a note to return to daycare/school/sports/work: Yes HPI HPI Comments History of Present Illness Details History of Present Illness - The patient is a 38-year-old female pr esenting with a primary concern regarding a visible structure rising and falling /spasming in the left wrist and accompanying musculoskeletal pain attributed to potential overuse from occupational duties. - The patient observed a bulging vein in the wrist which was concerning but denies any pain at the site, considering it a result of increased fluid volume or musculoskeletal strain. - Musculoskeletal chest pain is demonstr ated as reproducible upon palpation, suggesting musculoskeletal origins, possibly related to heavy lifting at work. She denies any chest pain that is not reproducible, chest pain that radiates to her back or abdomen, neck pain, shoulder pain, left arm pain or weakness or numbness or tingling, right arm pain or weakness or numbness or tingling, dizziness, shortness of breaths, nausea or sweating. - Despite anxiety over potential cardiov ascular problems, She has no evidence of serious cardiac symptoms. She does have a history of hypertension. - she states she it was recently sick an d still has not fully recovered so she could be a little dehydrated. Physical Exam General: Cooperative, healthy appearing, comfortable, no acute distress and well developed Orientation: Patient oriented x3 Limitations: No limitations Head: Normal to inspection Ears: Hearing grossly normal bilaterally Nose: Normal external nose present Face and sinus: Normal facial exam Eyes: Appearance normal, both eyes and all related structures Neck: Normal visual inspection and Yes full ROM Respiratory: Normal respiratory effort and able to speak in complete sentences. Skin: No rashes or lesions noted Neuro: Patient oriented x3 Extremities: As below [facility] Surgical History No pertinent past surgical history Family History Father No problems noted. Mother HTN (hypertension) Diabetes mellitus Maternal Grandmother Unknown family medical history Maternal Grandfather Unknown family medical history Paternal Grandfather Unknown family medical history Paternal Grandmother Unknown family medical history Brother No problems noted. Brother No problems noted. Brother No problems noted. Sister No problems noted. Sister No problems noted. Sister No problems noted. Sister No problems noted. Sister No problems noted. Sister No problems noted. Son No problems noted. Son No problems noted. Social History Housing: House Alcohol intake: current Alcohol intake frequency: holidays/special occasions only Patient Tobacco Use Status: Never used Tobacco e-Cigarette/Vaping Use: Never Used service: No Current occupational status: employed Cognitive needs: No Hearing needs: No Vision needs: No Female Reproductive History Menstrual Age of Menarche: 13 Review of Systems Const All systems reviewed & are unremarkable except as noted in HPI and below Physical Exam Vital Signs: Last Vital Signs Pulse 59 03/25/24 10:34 BP 130/90 H 03/25/24 10:34 Pulse Ox 97 03/25/24 10:34 Oxygen Delivery Method Room Air 03/25/24 10:34 Const General: cooperative, healthy appearing, comfortable, no acute distress and well developed Orientation/consciousness: patient oriented x3 Limitations: no limitations HEENT Head: Yes normal to inspection Ears: hearing grossly normal bilaterally General nose exam: Normal external nose present Face and sinus: Yes normal facial exam Eyes General: appearance normal, both eyes and all related structures Neck Neck: Yes normal visual inspection and Yes full ROM Chest Chest palpation & inspection: normal inspection of the chest and tenderness (Left midclavicular line, rib 2-3) Resp Effort & Inspection: normal respiratory effort and able to speak in complete sentences Skin General skin exam: no rashes or lesions noted Neuro General: patient oriented x3 Extrem General: Yes normal to inspection Left upper extremity: elbow/forearm Details: normal to inspection and normal ROM; no tenderness and no swelling, wrist (Full range of motion, negative Phalen's, negative Tinel's) and hand (5/5 roving weight gauger strength) Details: normal to inspection, normal capillary refill, neuromotor exam normal, neurosensory exam normal and vascular exam Details: normal capillary refill; no tenderness, no unusual warmth, no swelling, no abrasions and no lacerations Assessment & Plan Assessment & Plan (1) Wrist spasm: Code(s): R25.2 - Cramp and spasm Plan: Plan An initial assessment ruled out carpal tunnel syndrome. LIkely muscle spasms secondary to dehydration with recent illness. Improving hydration and maintaining electrolyte balance are advised to address potential roles in muscle function. Recommended she get the labs done that her PCP ordered for her, as these could show she is actually dehydrated. Also recommended she use some electrolyte replacement drinks over the next few days along with an increase in her water intake. Patient was informed and verbally consented to the use of an ambient scribe for clinic note documentation during this visit. (2) Chest pain: Code(s): R07.9 - Chest pain, unspecified Qualifiers: Chest pain type: intercostal pain Qualified Code(s): R07.82 - Intercostal pain Plan: The musculoskeletal pain appears related to occupational activities, likely strain, or repetitive motion as it is reproducible with ease. Given the apprehension about a possible cardiovascular issue, reassurance and education were provided, highlighting the absence of symptoms correlating with acute cardiac conditions. Anxiety over heart health should be addressed with ongoing symptom education. Cardiac workup, such as EKG, was deemed unnecessary at this time due to lack of concerning cardiac symptoms. Patient given red flag warning signs on when to go to the ED. Coding Level of Care Code Est Pt Level 4 (05699) Diagnoses Wrist spasm R25.2 Intercostal pain R07.82 Chest pain type: intercostal pain
[2024-03-25 10:34] VITALS: BP 130/90; PULSE 59; O2SAT 97
== END 2024-03-25 11:02 | disposition home or self-care (01) ==
PROVIDERS: PCP Internal Medicine; Visit Provider Physician Assistant
DX: R25.2 Cramp and spasm (principal); R07.82 Intercostal pain

== ENCOUNTER 2024-04-24 14:45 | Outpatient (REF) | payer BC, SELFPAY ==
[2024-04-24 15:29] LABS: MANUAL DIFF FLAG NO
[2024-04-24 15:33] LABS: Basophils Absolute Auto 0.1 X10*3/uL (0.0-0.2); Basophils Percent Auto 1.1 % (0-2); Eosinophils Absolute Auto 0.2 X10*3/uL (0.0-0.4); Eosinophils Percent Auto 3.5 % (0-4); Hematocrit 38.2 % (37.0-47.0); Hemoglobin 12.9 g/dl (12.0-16.0); Imm Gran Abs Auto 0.01 X10*3/uL (0.00-0.03); Imm Gran Pct Auto 0.2 % (0.0-0.4); Lymphocytes Absolute Auto 2.1 X10*3/uL (1.2-4.9); Lymphocytes Percent Auto 38.4 % (20-40); Mean Corpuscular HGB Conc 33.8 g/dl (31.0-35.0); Mean Corpuscular Hemoglobin 26.2 pg (27.0-33.0); Mean Corpuscular Volume 77.5 fL (80.0-98.0); Mean Platelet Volume 10.8 fL (9.4-12.3); Monocytes Absolute Auto 0.4 X10*3/uL (0.1-1.2); Monocytes Percent Auto 6.5 % (2-11); Neutrophils Absolute Auto 2.7 x10*3/uL (2.0-8.3); Neutrophils Percent Auto 50.3 % (45-73); Platelet Count 298 X10*3/uL (160-400); Red Blood Count 4.93 X10*6/uL (4.20-5.50); Red Cell Distribution Width 14.4 % (11.0-16.0); White Blood Count 5.4 X10*3/uL (4.8-10.8)
[2024-04-24 16:01] LABS: Alanine Aminotransferase 11 U/L (0-31); Albumin Level 3.7 g/dL (3.5-5.0); Anion Gap 10 (12-20); Aspartate Amino Transferase 23 U/L (5-31); Bilirubin Total 0.5 mg/dL (0.0-1.0); Blood Urea Nitrogen 8 mg/dL (9-16); Calcium 8.9 mg/dL (8.4-10.2); Carbon Dioxide 25 mmol/L (22-29); Chloride 109 mmol/L (96-108); Cholesterol 131 mg/dL (<200); Estimated Glomerular Filt Rate > 60; Glucose Fasting 80 mg/dL (60-99); HDL Cholesterol 39 mg/dL (>40); LDL Cholesterol Calculated 82 mg/dL (<100); Potassium 4.1 mmol/L (3.3-5.1); Sodium 140 mmol/L (135-145); Total Protein 7.6 g/dL (6.5-8.0); Triglycerides 53 mg/dL (<150)
[2024-04-24 16:15] LABS: TSH reflex Free T4 1.54 uIU/mL (0.32-4.0)
[2024-04-24 16:37] LABS: Alkaline Phosphatase 59 U/L (39-117)
[2024-04-29 12:43] LABS: Vitamin D 25-OH, D2 <4 ng/mL; Vitamin D 25-OH, D3 34 ng/mL; Vitamin D 25-OH, Total 34 ng/mL (30-100)
== END 2024-04-24 14:46 | disposition home or self-care (01) ==
LOC: HO.HMGCLDS 14:45
PROVIDERS: PCP Internal Medicine; Visit Provider Internal Medicine
DX: Z00.01 Encounter for general adult medical examination with abnormal findings (principal); E66.01 Morbid (severe) obesity due to excess calories; F41.1 Generalized anxiety disorder
CPT/HCPCS: 36415; 80053; 80061; 82306; 84443; 85025

== ENCOUNTER 2024-05-13 08:08 | Outpatient (AMB) | payer BC, SELFPAY ==
--- NOTE | 2024-05-13 09:21 | A.OFFPC_ITS ---
Intake Visit Reasons: Discuss labs Allergies No Known Allergies [No Known Allergies*] Allergy (Verified 05/13/24 09:21) Medication List - Last Reconciled 05/13/24 by Brenton Kaur MD No Known Home Meds Tobacco use date assessed: 05/13/24 Dental Screening Dental Screen Date: 05/13/24 Did you have a dental visit in the last 12 months?: Yes Did you have a dental problem in the last 6 months where you did not have access to dental care?: No Was dental information given to patient?: Patient has dentist HPI Discuss labs HPI Details History The patient is a 39-year-old female presenting with a follow-up visit for the review of recent laboratory test results. - Reviewed recent lab findings indicatin g normal kidney function, blood glucose, liver function, thyroid function, and complete blood count. - The lipid profile returns with a low-d ensity lipoprotein (LDL) level of 82, considered excellent, though the high-density lipoprotein (HDL) is slightly low at 39. - Noted vitamin D was low normal; supple mentation is recommended. Problem List - Low Normal Vitamin D Level Patient Instructions - Begin taking a vitamin D supplement as the current level is low normal. - Incorporate more nuts into your diet t o elevate your HDL cholesterol levels. - Continue regular exercise. - A urine test may be included if desire d for routine screening. Review of Systems - General: No fever no chills - Neurological: No headaches no dizziness - Ear nose throat: No sore throat no hearing difficulty no ear pain - Cardiovascular: No syncope, no chest pain, no palpitations - Gastrointestinal: No nausea vomiting or diarrhea - Endocrine: No polyuria polydipsia no heat intolerance - Genitourinary: No dysuria , no blood in urine [facility] Surgical History No pertinent past surgical history Family History Father No problems noted. Mother HTN (hypertension) Diabetes mellitus Maternal Grandmother Unknown family medical history Maternal Grandfather Unknown family medical history Paternal Grandfather Unknown family medical history Paternal Grandmother Unknown family medical history Brother No problems noted. Brother No problems noted. Brother No problems noted. Sister No problems noted. Sister No problems noted. Sister No problems noted. Sister No problems noted. Sister No problems noted. Sister No problems noted. Son No problems noted. Son No problems noted. Social History Housing: House Alcohol intake: current Alcohol intake frequency: holidays/special occasions only Patient Tobacco Use Status: Never used Tobacco e-Cigarette/Vaping Use: Never Used service: No Current occupational status: employed Cognitive needs: No Hearing needs: No Vision needs: No Female Reproductive History Menstrual Age of Menarche: 13 Questionnaire Thrive Questionnaire Date Thrive assessed: 05/13/24 AUDIT C Alcohol Use Questionnaire (AUDIT-C) 1. How often do you have a drink containing alcohol?: Monthly or less 2. How many drinks containing alcohol do you have on a typical day when you are drinking?: 1 or 2 3. How often do you have six or more drinks on one occasion?: Never Total Score: 1 Score Reviewed/Action Taken: Yes BLANCA-7 AMB Questionnaire BLANCA-7 Date BLANCA - 7 assessed: 03/23/24 Source: Developed by Drs. Mick Luu, Colette Alas, Gera Pierce and colleagues, with an educational nazia from [email or web address]. Physical exam (Primary Care) Tobacco/Smoking Status: Tobacco use Status Tobacco use date assessed 05/13/24 05/13/24 09:22 Patient Tobacco Use Status Never used Tobacco 05/13/24 09:22 e-Cigarette/Vaping Use Never Used 05/13/24 09:22 Thrive Assessment: Date of Thrive Assessment Date Thrive assessed 05/13/24 05/13/24 09:22 Telehealth Telehealth Telehealth Platform: [facility] Location of provider rendering services: practice address Location of patient: address on file Patient Identification confirmed using: Name, : Yes Telehealth method: voice only Patient verbally consented to treatment: Yes Patient verbally consented to billing insurance company: Yes Patient informed of any privacy concerns related to visit: Yes Minutes spent on Phone/Video with Pt.: 13 Coding Level of Care Code Tele Est Pt Level 3 (56385) Diagnoses Vitamin D deficiency E55.9 Assessment & Plan Assessment & Plan (1) Vitamin D deficiency: Code(s): E55.9 - Vitamin D deficiency, unspecified Category: Medical Plan History The patient is a 39-year-old female presenting with a follow-up visit for the review of recent laboratory test results. - Reviewed recent lab findings indicating normal kidney function, blood glucose, liver function, thyroid function, and complete blood count. - The lipid profile returns with a low-density lipoprotein (LDL) level of 82, considered excellent, though the high-density lipoprotein (HDL) is slightly low at 39. - Noted vitamin D was low normal; supplementation is recommended. Problem List - Low Normal Vitamin D Level Patient Instructions - Begin taking a vitamin D supplement as the current level is low normal. - Incorporate more nuts into your diet to elevate your HDL cholesterol levels. - Continue regular exercise. - A urine test may be included if desired for routine screening.
== END 2024-05-13 10:08 | disposition home or self-care (01) ==
LOC: HO.HMCC 08:08
PROVIDERS: PCP Internal Medicine; Visit Provider Internal Medicine
DX: E55.9 Vitamin D deficiency, unspecified (principal)